=== PATIENT | male | born 1985 | race Caucasian/White ===

== ENCOUNTER 2017-11-20 00:28 | Emergency (ER) | payer MEDICARE, OTHER ==
[~2017-11-20] VITALS: Ht 175.3 cm; Wt 100.0 kg
[2017-11-20] MEDS ORDERED: HTN MED PO (01:07)
[2017-11-20] MEDS ORDERED: METFORMIN PO (01:07)
[2017-11-20] MEDS ORDERED: DEPAKOTE PO (01:07)
[2017-11-20] MEDS ORDERED: ZYPREXA PO (01:07)
[2017-11-20 02:16] VITALS: BP 109/72
[2017-11-20 16:34] LABS: GLUCOSE,POINT OF CARE 106 MG/DL (70-110)
== END 2017-11-20 02:51 | disposition home or self-care (01) ==
LOC: EMS 00:29
DX: F41.9 Anxiety disorder, unspecified (principal); F17.210 Nicotine dependence, cigarettes, uncomplicated; F31.9 Bipolar disorder, unspecified; E11.9 Type 2 diabetes mellitus without complications; I10 Essential (primary) hypertension; F20.9 Schizophrenia, unspecified; Z79.84 Long term (current) use of oral hypoglycemic drugs; Z79.899 Other long term (current) drug therapy
CPT/HCPCS: 99284

== ENCOUNTER 2018-01-02 00:05 | Emergency (ER) | payer MEDICARE, OTHER ==
[~2018-01-02] VITALS: Ht 172.7 cm; Wt 81.8 kg
[~2018-01-02 00:05] MED LIST: CLON-570 PO; DEPAKOTE PO; DIVA-78 PO; FAMO20 PO; HTN MED PO; LISI-661 PO; LORA0.5T2 PO; METF-960 PO; METFORMIN PO; METO50 PO; MULT1TAB70 PO; OLAN5TAB40 PO; OMEG-135 PO; TRAZ-186 PO; ZYPREXA PO
[2018-01-02 00:30] VITALS: BP 137/85
[2018-01-02 00:38] LABS: BASOPHILS % (AUTO) 0.9 % (0.0-2.0); EOSINOPHILS % (AUTO) 2.4 % (1.0-6.0); HEMOGLOBIN 15.8 g/dL (13.5-17.5); LYMPHOCYTES # (AUTO) 3.9 K/uL (1.0-4.8); MEAN CORPUSCULAR HGB CONC 34.4 G/dL (31.0-37.0); MEAN CORPUSCULAR VOLUME 90 fL (80-100); MONOCYTES # (AUTO) 0.6 K/uL (0.1-1.0); MONOCYTES % (AUTO) 6.3 % (2.0-9.0); NEUTROPHILS # (AUTO) 5.2 K/uL (1.8-7.7); NEUTROPHILS % (AUTO) 51.4 % (40.0-70.0); PLATELET COUNT (AUTO) 178 K/uL (150-450); RED CELL DISTRIBUTION WIDTH 13.5 % (11.5-14.5)
[2018-01-02 00:42] LABS: GLUCOSE,POINT OF CARE 98 MG/DL (70-110)
[2018-01-02 00:43] LABS: AMPHET/METH SCREEN,URINE NEGATIVE (NEGATIVE); BARBITURATE SCREEN, URINE NEGATIVE (NEGATIVE); BENZODIAZEPINES SCREEN,URINE NEGATIVE (NEGATIVE); CANNABINOID SCREEN,URINE NEGATIVE (NEGATIVE); COCAINE SCREEN,URINE NEGATIVE (NEGATIVE); METHADONE SCREEN, URINE NEGATIVE (NEGATIVE); OPIATE SCREEN,URINE NEGATIVE (NEGATIVE); PHENCYCLIDINE SCREEN,URINE NEGATIVE (NEGATIVE)
[2018-01-02 00:47] LABS: ANION GAP 8 mmol/L (8-16); CALCIUM, TOTAL 8.9 mg/dL (8.8-10.5); CARBON DIOXIDE 26 mmol/L (22-29); CHLORIDE 102 mmol/L (98-107); CREATININE 0.83 mg/dL (0.60-1.30); GLOMERULAR FILTR. RATE CALC > 60 mL/min (>60); GLUCOSE,RANDOM 100 mg/dL (70-110); POTASSIUM 3.9 mmol/L (3.5-5.1); SODIUM SERUM 136 mmol/L (136-145); UREA NITROGEN, BLOOD 8 mg/dL (7-18)
[2018-01-02 00:53] LABS: ALANINE AMINOTRANSFERASE 88 U/L (12-78); ALBUMIN 3.8 g/dL (3.4-5.0); ALKALINE PHOSPHATASE 97 U/L (46-116); ASPARTATE AMINOTRANSFERASE 40 U/L (15-37); BILIRUBIN,TOTAL 0.2 mg/dL (0.1-1.0); TOTAL PROTEIN, SERUM 7.9 g/dL (6.4-8.2)
== END 2018-01-02 04:39 | disposition home or self-care (01) ==
LOC: EMS 00:05
DX: F25.9 Schizoaffective disorder, unspecified (principal); F41.9 Anxiety disorder, unspecified; F31.9 Bipolar disorder, unspecified; E11.9 Type 2 diabetes mellitus without complications; I10 Essential (primary) hypertension; F17.210 Nicotine dependence, cigarettes, uncomplicated; Z79.899 Other long term (current) drug therapy; Z79.84 Long term (current) use of oral hypoglycemic drugs
CPT/HCPCS: 36415; 80053; 80307; 82962; 85025; 99284; G0480

== ENCOUNTER 2018-01-03 22:49 | Emergency (ER) | payer MEDICARE, OTHER ==
[~2018-01-03] VITALS: Ht 172.7 cm; Wt 108.0 kg
[2018-01-03 23:07] VITALS: BP 126/83
[2018-01-03 23:30] LABS: AMPHET/METH SCREEN,URINE NEGATIVE (NEGATIVE); BARBITURATE SCREEN, URINE NEGATIVE (NEGATIVE); BENZODIAZEPINES SCREEN,URINE NEGATIVE (NEGATIVE); CANNABINOID SCREEN,URINE NEGATIVE (NEGATIVE); COCAINE SCREEN,URINE NEGATIVE (NEGATIVE); METHADONE SCREEN, URINE NEGATIVE (NEGATIVE); OPIATE SCREEN,URINE NEGATIVE (NEGATIVE)
[2018-01-03 23:42] LABS: PHENCYCLIDINE SCREEN,URINE NEGATIVE (NEGATIVE)
== END 2018-01-04 00:27 | disposition left against medical advice (07) ==
LOC: MERGE 22:49 → EMS 22:49
DX: R44.3 Hallucinations, unspecified (principal); Z53.21 Procedure and treatment not carried out due to patient leaving prior to being seen by health care provider

== ENCOUNTER 2018-01-08 22:39 | Emergency (ER) | payer MEDICARE, OTHER ==
[~2018-01-08] VITALS: Ht 172.7 cm; Wt 100.0 kg
[~2018-01-08 22:39] MED LIST changes: -CLON-570 PO; -DIVA-78 PO; -FAMO20 PO; -LISI-661 PO; -LORA0.5T2 PO; -METF-960 PO; -METO50 PO; -MULT1TAB70 PO; -OLAN5TAB40 PO; -OMEG-135 PO; -TRAZ-186 PO
[2018-01-08 23:53] VITALS: BP 129/78
== END 2018-01-09 00:33 | disposition home or self-care (01) ==
LOC: EMS 22:40
DX: F25.9 Schizoaffective disorder, unspecified (principal); F41.9 Anxiety disorder, unspecified; F31.9 Bipolar disorder, unspecified; I10 Essential (primary) hypertension; E11.9 Type 2 diabetes mellitus without complications; F17.210 Nicotine dependence, cigarettes, uncomplicated; Z79.84 Long term (current) use of oral hypoglycemic drugs

== ENCOUNTER 2018-02-22 02:01 | Emergency (ER) | payer MEDICARE, OTHER ==
[~2018-02-22 02:01] MED LIST changes: +CLON-570 PO; +DIVA-78 PO; +FAMO20 PO; +LISI-661 PO; +LORA0.5T2 PO; +METF-960 PO; +METO50 PO; +MULT1TAB70 PO; +OLAN5TAB40 PO; +OMEG-135 PO; +TRAZ-186 PO
== END 2018-02-22 02:49 | disposition left against medical advice (07) ==
LOC: EMS 02:03
DX: Z00.00 Encounter for general adult medical examination without abnormal findings (principal); Z53.21 Procedure and treatment not carried out due to patient leaving prior to being seen by health care provider

== ENCOUNTER 2020-04-23 04:57 | Emergency (ER) | payer MEDICARE, OTHER ==
[~2020-04-23] VITALS: Ht 177.8 cm; Wt 95.5 kg
[~2020-04-23 04:57] MED LIST changes: -CLON-570 PO; +CLON0.1T2 PO; +DIVA-112 PO; -DIVA-78 PO; -LISI-661 PO; +LISI-893 PO; +LORA-999 PO; -LORA0.5T2 PO; +MULT-660 PO; -MULT1TAB70 PO
[2020-04-23 05:26] LABS: COVID AG,FIA SOURCE NASOPHARYNGEAL
[2020-04-23 06:31] VITALS: BP 140/80
== END 2020-04-23 07:57 | disposition home or self-care (01) ==
LOC: EMS 04:59
DX: E11.9 Type 2 diabetes mellitus without complications (principal); I10 Essential (primary) hypertension; F20.9 Schizophrenia, unspecified; F41.9 Anxiety disorder, unspecified; F17.210 Nicotine dependence, cigarettes, uncomplicated; Z20.822 Contact with and (suspected) exposure to COVID-19; Z79.84 Long term (current) use of oral hypoglycemic drugs
CPT/HCPCS: 87426; 99283